=== PATIENT | male | born 1975 | race Caucasian/White ===

== ENCOUNTER 2025-01-01 20:49 | Inpatient (IN) | payer MEDICARE ==
[~2025-01-01] VITALS: Ht 190.5 cm; Wt 110.7 kg
[2025-01-01 22:08] LABS: HEMATOCRIT 40.5 % (42.0-52.0); HEMOGLOBIN 13.8 g/dl (13.5-17.5); MEAN CORPUSCULAR HEMOGLOBIN 29.4 pg (27.0-33.0); MEAN CORPUSCULAR HGB CONC 34.1 g/dl (32.0-36.5); MEAN CORPUSCULAR VOLUME 86.4 fl (80.0-96.0); PLATELET COUNT, AUTOMATED 143 10^3/uL (150-450); RED BLOOD COUNT 4.69 10^6/uL (4.30-6.10); WHITE BLOOD COUNT 9.4 10^3/uL (4.0-10.0)
[2025-01-01 22:38] LABS: AMPHETAMINES LEVEL URINE NEGATIVE (NEGATIVE); BARBITURATES URINE NEGATIVE (NEGATIVE); BENZODIAZEPINES URINE NEGATIVE (NEGATIVE); COCAINE METABOLITE URINE NEGATIVE (NEGATIVE); METHADONE URINE NEGATIVE (NEGATIVE); OPIATES URINE NEGATIVE (NEGATIVE); PHENCYCLIDINE URINE NEGATIVE (NEGATIVE)
[2025-01-01 22:41] LABS: CANNABINOIDS URINE POSITIVE (NEGATIVE); ETHYL ALCOHOL (ETHANOL) < 0.003 % (0.000-0.010)
[2025-01-01 22:43] LABS: ALBUMIN 3.8 G/DL (3.2-5.2); ALKALINE PHOSPHATASE 68 U/L (40-129); ALT/SGPT 32 U/L (7.0-40); AST/SGOT 21 U/L (<34); BILIRUBIN,DIRECT 0.3 MG/DL (<0.4); BILIRUBIN,TOTAL 1.1 MG/DL (0.3-1.2); BLOOD UREA NITROGEN 22 MG/DL (9-23); CALCIUM LEVEL 8.9 MG/DL (8.5-10.1); CARBON DIOXIDE LEVEL 28 MMOL/L (20-31); CHLORIDE LEVEL 104 MMOL/L (98-107); CREATININE FOR GFR 1.11 MG/DL (0.70-1.30); GLOMERULAR FILTRATION RATE > 60.0 (>56); GLUCOSE, FASTING 89 MG/DL (60-100); POTASSIUM SERUM 3.8 MMOL/L (3.5-5.1); SALICYLATE LEVEL < 3.0 MG/DL (<30); SODIUM LEVEL 139 MMOL/L (136-145); TOTAL PROTEIN 6.6 G/DL (5.7-8.2)
[2025-01-01 22:45] LABS: THYROID STIMULATING HORMONE 0.727 uIU/ML (0.55-4.78)
[2025-01-02] MEDS ORDERED: MAALOX 30 ML SUSP *UDC PO PRN (02:05)
[2025-01-02] MEDS ORDERED: diphenhydrAMINE 25MG CAP PO PRN (02:05)
[2025-01-02] MEDS ORDERED: MOM 30ML SUSPENSION UDC PO PRN (02:05)
[2025-01-02 02:45] VITALS: BP 144/82; TEMP 98.4; O2SAT 97
[2025-01-02] MEDS: traZODone 50 MG TAB PO PRN (03:22)
[2025-01-02] MEDS: IBUPROFEN 400MG TAB PO PRN (03:23)
[2025-01-02] MEDS ORDERED: OLANZapine ORAL DISINTEGRATING TAB 5MG PO PRN (08:55)
[2025-01-02] MEDS ORDERED: QUET1TAB17 PO (09:11)
[2025-01-02] MEDS ORDERED: HOME MED LIST COMPLETE! XX SCH (09:15)
[2025-01-02 15:50] VITALS: BP 125/76; TEMP 98.1; O2SAT 100
[2025-01-02] MEDS: QUEtiapine FUMARATE 50MG TAB PO SCH (21:35)
[2025-01-03 06:29] VITALS: BP 133/76; TEMP 98.1; O2SAT 99
[2025-01-03 14:42] VITALS: BP 131/84; TEMP 97.1; O2SAT 98
[2025-01-04 06:37] VITALS: BP 149/79; TEMP 97.5; O2SAT 98
[2025-01-04] MEDS: CARIPRAZINE 1.5MG CAPSULE (VRAYLAR) PO SCH (12:31)
[2025-01-04 15:38] VITALS: BP 151/82; TEMP 97.2; O2SAT 97
[2025-01-04] MEDS: ACETAMINOPHEN 325 MG TAB PO PRN (20:15)
[2025-01-05 06:38] VITALS: BP 139/83; TEMP 97.3; O2SAT 98
[2025-01-05] MEDS ORDERED: SUMAtriptan SUCCINATE 25MG TABLET PO PRN (08:25)
[2025-01-05] MEDS ORDERED: VRAY1.5C PO (12:41)
[2025-01-05] MEDS ORDERED: QUET1TAB17 PO (12:41)
[2025-01-05] MEDS ORDERED: TRAZ-252 PO (12:41)
[2025-01-05] MEDS ORDERED: SUMA25TA3 PO (12:41)
[2025-01-05 15:36] VITALS: BP 128/81; TEMP 97.7; O2SAT 98
[2025-01-05] MEDS: QUEtiapine FUMARATE 25 MG TAB PO SCH (21:55)
[2025-01-06 06:44] VITALS: BP 134/82; TEMP 97.8; O2SAT 95
[2025-01-06 07:33] LABS: CHOLESTEROL RISK RATIO 5.92 (<5); HDL CHOLESTEROL 29.7 MG/DL (>40); LDL CHOLESTEROL 111.3 MG/DL (<100); NON-HDL-C 146.3 MG/DL
== END 2025-01-06 10:07 | disposition home or self-care (01) | DRG 885 ==
LOC: M ED 20:49 → M ED INP 01-02 02:04 → M PSY 01-02 03:00
PROVIDERS: ADMIT Psychiatry & Neurology Neurology; ATTEND Psychiatry & Neurology Neurology
DX: F31.9 Bipolar disorder, unspecified (principal); R45.851 Suicidal ideations; F90.9 Attention-deficit hyperactivity disorder, unspecified type; Z91.51 Personal history of suicidal behavior; F95.2 Tourette's disorder; Z90.49 Acquired absence of other specified parts of digestive tract; Z79.899 Other long term (current) drug therapy